=== PATIENT | male | born 1990 | race Caucasian/White ===

== ENCOUNTER 2018-12-18 16:44 | Emergency (ER) | payer SELFPAY ==
[~2018-12-18] VITALS: Ht 167.6 cm; Wt 79.4 kg
[2018-12-18 16:58] VITALS: Ht 167.6 cm; Wt 79.4 kg
[2018-12-18 18:03] VITALS: BP 138/86
== END 2018-12-18 18:03 | disposition home or self-care (01) ==
LOC: ED 16:44
DX: R21 Rash and other nonspecific skin eruption (principal); R10.30 Lower abdominal pain, unspecified
CPT/HCPCS: Q0163